=== PATIENT | female | born 1985 | race Caucasian/White ===

== ENCOUNTER 2019-03-19 12:57 | Inpatient (IN) | payer BC ==
[~2019-03-19] VITALS: Ht 180.3 cm; Wt 101.4 kg
[2019-04-01] MEDS: LACTATED RINGERS 1,000 ML IV SCH (06:00)
[2019-04-01 21:05] VITALS: BP 128/85
[2019-04-01] MEDS ORDERED: OXYTOCIN 30U/ 0.9% NaCL 500ML 500 ML IV ONE (21:22)
[2019-04-01] MEDS ORDERED: D5%-LACTATED RINGERS 1,000 ML IV SCH (21:22)
[2019-04-01] MEDS ORDERED: FENTANYL/BUPIV./NS/PF 250 ML EPIDCONT SCH (21:28)
[2019-04-01] MEDS ORDERED: LIDOCAINE 1%, 20ML ONE (21:29)
[2019-04-01] MEDS ORDERED: NEWBORN KIT ONE (21:29)
[2019-04-01] MEDS ORDERED: MISOPROSTOL 25 MCG TABLET ONE (21:30)
[2019-04-01] MEDS ORDERED: TERBUTALINE 1 MG/ML, 1ML IVPush PRN (21:30)
[2019-04-01] MEDS ORDERED: ONDANSETRON 2MG/ML, 2ML IVPush PRN (21:30)
[2019-04-01] MEDS ORDERED: METOCLOPRAMIDE 5 MG/ML, 2ML IVPush PRN (21:30)
[2019-04-01] MEDS ORDERED: EPHEDRINE 50 MG/ML, 1ML IVPush PRN (21:30)
[2019-04-01] MEDS ORDERED: CALCIUM CARBONATE 500 MG TAB.CHEW PO PRN (21:30)
[2019-04-01] MEDS ORDERED: FENTANYL PF 100 MCG/2ML IVPush PRN (21:30)
[2019-04-01] MEDS ORDERED: FENTANYL PF 100 MCG/2ML IV PRN (21:30)
[2019-04-01] MEDS ORDERED: TERBUTALINE 1 MG/ML, 1ML SQ PRN (21:30)
[2019-04-01] MEDS ORDERED: SODIUM CITRATE/CITRIC ACID 30 ML UDC PO PRN (21:30)
[2019-04-01] MEDS ORDERED: OXYTOCIN 30U/ 0.9% NaCL 500ML 500 ML ONE (21:30)
[2019-04-01] MEDS ORDERED: MISOPROSTOL 200 MCG TABLET ONE (21:30)
[2019-04-01] MEDS ORDERED: LACTATED RINGERS 1,000 ML IVBOLUS PRN (21:30)
[2019-04-01] MEDS: MISOPROSTOL 25 MCG TABLET VG PRN (21:40)
[2019-04-01 21:50] LABS: BASOPHILS # (AUTO) 0.02 x10^3/uL (0-0.1); BASOPHILS % (AUTO) 0 % (0-1); EOSINOPHILS # (AUTO) 0.21 x10^3/uL (0-0.4); EOSINOPHILS % (AUTO) 2 % (1-7); LYMPHOCYTES # (AUTO) 2.01 x10^3/uL (1-3.4); LYMPHOCYTES % (AUTO) 20 % (22-44); MD NO; MEAN CORPUSCULAR VOLUME 87.8 fL (80-100); MEAN PLATELET VOLUME 7.9 fL (7.4-10.4); MONOCYTES # (AUTO) 0.78 x10^3/uL (0.2-0.8); MONOCYTES % (AUTO) 8 % (2-9); NEUTROPHILS # (AUTO) 7.18 x10^3/uL (1.8-6.8); NEUTROPHILS % (AUTO) 70 % (42-75); PLATELET COUNT 283 x10^3/uL (130-400); RED BLOOD COUNT 4.01 x10^6/uL (3.82-5.3); RED CELL DISTRIBUTION WIDTH 14.1 % (9.6-15.2)
[2019-04-01] MEDS ORDERED: PLEASE ENTER HEIGHT AND WEIGHT MC SCH (22:00)
[2019-04-01] MEDS ORDERED: FENTANYL PF 500 MCG, BUPIVACAINE/PF 0.5%, 30ML 62.5 ML in SODIUM CHLORIDE 0.9% 177.5 ML EPIDCONT SCH (22:00)
[2019-04-02] MEDS ORDERED: MISOPROSTOL 25 MCG TABLET ONE (01:38)
[2019-04-02] MEDS: MISOPROSTOL 25 MCG TABLET VG PRN (01:40)
[2019-04-02] MEDS: LEVOTHYROXINE 50 MCG TABLET PO SCH (06:00)
[2019-04-02] MEDS ORDERED: OXYTOCIN 30U/ 0.9% NaCL 500ML 500 ML IV PRN (07:30)
[2019-04-02] MEDS ORDERED: ONDANSETRON 2MG/ML, 2ML ONE (09:43)
[2019-04-02] MEDS: LACTATED RINGERS 1,000 ML IV SCH ×4 (10:34→22:30)
[2019-04-02] MEDS ORDERED: BUPIVACAINE 0.25% ONE (21:14)
[2019-04-02] MEDS ORDERED: FENTANYL/BUPIV./NS/PF 250 ML EPIDCONT SCH (21:35)
[2019-04-02] MEDS ORDERED: LACTATED RINGERS 1,000 ML IV SCH (21:35)
[2019-04-02] MEDS ORDERED: LACTATED RINGERS 1,000 ML IVBOLUS PRN (22:00)
[2019-04-02] MEDS ORDERED: EPHEDRINE 50 MG/ML, 1ML IVPush PRN (22:00)
[2019-04-03] MEDS: OXYTOCIN 30U/ 0.9% NaCL 500ML 500 ML IV SCH ×4 (02:00→23:45)
[2019-04-03] MEDS ORDERED: OXYTOCIN 30U/ 0.9% NaCL 500ML 500 ML ONE (03:17)
[2019-04-03] MEDS ORDERED: DIPH,PERTUSS(ACELL),TET VAC/PF NC IM-VACC PRN (04:00)
[2019-04-03] MEDS ORDERED: OXYcodone/APAP 5/325MG TABLET PO PRN ×2 (04:00)
[2019-04-03] MEDS ORDERED: ACETAMINOPHEN 325 MG TABLET PO PRN ×2 (04:00)
[2019-04-03] MEDS ORDERED: MAGNESIUM HYDROXIDE 8%, 30ML UDC PO PRN (04:00)
[2019-04-03] MEDS ORDERED: CALCIUM CARBONATE 500 MG TAB.CHEW PO PRN (04:00)
[2019-04-03] MEDS ORDERED: ONDANSETRON 2MG/ML, 2ML IV PRN (04:00)
[2019-04-03] MEDS ORDERED: MISOPROSTOL 200 MCG TABLET PO PRN (04:00)
[2019-04-03] MEDS ORDERED: RHOGAM FROM BLOOD BANK 1 NOTE EA IM/IV ONE (04:00)
[2019-04-03] MEDS ORDERED: SIMETHICONE 80 MG CHEW TAB PO PRN (04:00)
[2019-04-03 05:35] VITALS: BP 126/71
[2019-04-03] MEDS: LEVOTHYROXINE 50 MCG TABLET PO SCH (05:54)
[2019-04-03 11:54] LABS: MEAN CORPUSCULAR HEMOGLOBIN 28.9 pg (27.0-34.8); MEAN CORPUSCULAR HGB CONC 32.7 g/dL (32.4-35.8); MEAN CORPUSCULAR VOLUME 88.5 fL (80-100); PLATELET COUNT 247 x10^3/uL (130-400); RED BLOOD COUNT 3.73 x10^6/uL (3.82-5.3); RED CELL DISTRIBUTION WIDTH 14.2 % (9.6-15.2)
[2019-04-03 12:00] VITALS: BP 107/72
[2019-04-03 12:07] LABS: BASOPHILS # (AUTO) 0.04 x10^3/uL (0-0.1); BASOPHILS % (AUTO) 0 % (0-1); EOSINOPHILS % (AUTO) 1 % (1-7); LYMPHOCYTES # (AUTO) 1.45 x10^3/uL (1-3.4); LYMPHOCYTES % (AUTO) 10 % (22-44); MD SCAN; MONOCYTES # (AUTO) 0.86 x10^3/uL (0.2-0.8); MONOCYTES % (AUTO) 6 % (2-9); NEUTROPHILS # (AUTO) 12.62 x10^3/uL (1.8-6.8); NEUTROPHILS % (AUTO) 83 % (42-75)
[2019-04-03] MEDS: PRENATAL VIT/IRON/FA 1 EACH TABLET PO SCH (15:44)
[2019-04-03] MEDS: IBUPROFEN 600 MG TABLET PO PRN ×2 (15:44→22:24)
[2019-04-03 16:00] VITALS: BP 128/82
[2019-04-03 20:15] VITALS: BP 108/71
[2019-04-03] MEDS: DOCUSATE 100 MG CAPSULE PO PRN ×2 (21:42→22:24)
[2019-04-03 23:50] VITALS: BP 116/76
[2019-04-04] MEDS: LEVOTHYROXINE 50 MCG TABLET PO SCH (06:27)
[2019-04-04 08:00] VITALS: BP 113/80
[2019-04-04] MEDS: IBUPROFEN 600 MG TABLET PO PRN (09:10)
[2019-04-04] MEDS: PRENATAL VIT/IRON/FA 1 EACH TABLET PO SCH (09:21)
[2019-04-04] MEDS ORDERED: IBUP-1222 PO (09:27)
[2019-04-04] MEDS ORDERED: PREN1TAB98 PO (09:28)
[2019-04-04] MEDS ORDERED: LEVO50TA5 PO (09:28)
== END 2019-04-04 13:05 | disposition home or self-care (01) | DRG 807 ==
LOC: LDIP 04-01 20:59 → 2NW 04-03 05:31
PROVIDERS: ADMIT Obstetrics & Gynecology; ATTEND Obstetrics & Gynecology
PROC: 10E0XZZ Delivery of Products of Conception, External Approach (ICD-10-PCS; principal; 2019-04-03)
PROC: 10907ZC Drainage of Amniotic Fluid, Therapeutic from Products of Conception, Via Natural or Artificial Opening (ICD-10-PCS; 2019-04-03)
PROC: 10H07YZ Insertion of Other Device into Products of Conception, Via Natural or Artificial Opening (ICD-10-PCS; 2019-04-03)
PROC: 0U7C7ZZ Dilation of Cervix, Via Natural or Artificial Opening (ICD-10-PCS; 2019-04-03)
PROC: 3E0R3BZ Introduction of Anesthetic Agent into Spinal Canal, Percutaneous Approach (ICD-10-PCS; 2019-04-03)
PROC: 00HU33Z Insertion of Infusion Device into Spinal Canal, Percutaneous Approach (ICD-10-PCS; 2019-04-03)
PROC: 3E0P7VZ Introduction of Hormone into Female Reproductive, Via Natural or Artificial Opening (ICD-10-PCS; 2019-04-03)
DX: O48.0 Post-term pregnancy (principal); Z37.0 Single live birth; O76 Abnormality in fetal heart rate and rhythm complicating labor and delivery; Z3A.42 42 weeks gestation of pregnancy
CPT/HCPCS: 36415; J7121; S0020; 82803; 85025; 86592; 86850; 86900; G0378; J2405; J3010; J2590; J7050; J7120